=== PATIENT | female | born 2000 | race Caucasian/White ===

== ENCOUNTER → 2021-01-22 | Outpatient (REF) | payer OTHER ==
[2021-01-22 14:14] LABS: FREE T4 1.01 NG/DL (0.78-1.33); THYROID STIMULATING HORMONE 2.05 uIU/ML (0.463-3.98)
[2021-01-22 14:15] LABS: FOLLICLE STIMULATING HORMONE 6.8 mIU/mL; PROGESTERONE 0.56 NG/ML
== END ==
LOC: M PLALAB 12:14
PROVIDERS: ATTEND Obstetrics & Gynecology
DX: N92.6 Irregular menstruation, unspecified (principal)

== ENCOUNTER 2021-05-01 10:11 | Emergency (ER) | payer OTHER, SELFPAY ==
[~2021-05-01] VITALS: Ht 167.6 cm; Wt 74.8 kg
[2021-05-01 10:11] VITALS: BP 128/77
== END 2021-05-01 12:24 | disposition home or self-care (01) ==
LOC: M ED 10:11
DX: U07.1 COVID-19 (principal); R07.0 Pain in throat; R05 Cough; R50.9 Fever, unspecified; F17.200 Nicotine dependence, unspecified, uncomplicated

== ENCOUNTER → 2022-01-30 | Outpatient (REF) | payer OTHER | LOC: M LAB REF 16:08 | PROVIDERS: ATTEND Nurse Practitioner Adult Health | DX: J02.9 Acute pharyngitis, unspecified (principal) ==

== ENCOUNTER → 2022-01-30 | Outpatient (CLI) | payer OTHER ==
[2022-01-30 14:02] LABS: BASO # 0.1 10^3/uL (0.0-0.2); BASO % 0.4 % (0.0-1.0); EOS # 0.3 10^3/uL (0.0-0.5); EOS % 1.7 % (0.0-3.0); HEMATOCRIT 37.1 % (36.0-47.0); HEMOGLOBIN 12.2 g/dl (12.0-15.5); LYMPH % 11.7 % (24.0-44.0); MEAN CORPUSCULAR HGB CONC 32.9 g/dl (32.0-36.5); MEAN CORPUSCULAR VOLUME 88.1 fl (80.0-96.0); MONO # 0.8 10^3/uL (0.0-0.8); MONO % 4.9 % (2.0-8.0); NEUTROPHILS # 13.6 10^3/uL (1.5-8.5); NEUTROPHILS % 80.7 % (36.0-66.0); PLATELET COUNT, AUTOMATED 277 10^3/uL (150-450); RED BLOOD COUNT 4.21 10^6/uL (4.00-5.40); WHITE BLOOD COUNT 16.8 10^3/uL (4.0-10.0)
[2022-01-30 14:49] LABS: HEPATITIS C VIRUS ABY INDEX 0.1 INDEX (<0.8); HIV 1&2 SCREEN CENTAUR NEGATIVE (NEGATIVE)
[2022-01-30 16:16] LABS: GC DNA AMPLIFICATION NEGATIVE (NEGATIVE)
== END ==
LOC: M PLALAB 09:01
PROVIDERS: ATTEND Obstetrics & Gynecology
DX: Z34.82 Encounter for supervision of other normal pregnancy, second trimester (principal)

== ENCOUNTER → 2022-03-02 | Outpatient (CLI) | payer OTHER | LOC: M WHC 08:18 | PROVIDERS: ATTEND Advanced Practice Midwife | DX: Z34.02 Encounter for supervision of normal first pregnancy, second trimester (principal); Z53.9 Procedure and treatment not carried out, unspecified reason ==

== ENCOUNTER → 2022-03-10 | Outpatient (CLI) | payer OTHER | LOC: M WHC 06:53 | PROVIDERS: ATTEND Advanced Practice Midwife | DX: O32.2XX0 Maternal care for transverse and oblique lie, not applicable or unspecified (principal); Z3A.20 20 weeks gestation of pregnancy ==

== ENCOUNTER → 2022-04-13 | Outpatient (REF) | payer OTHER | LOC: M PLALAB 07:55 | PROVIDERS: ATTEND Advanced Practice Midwife | DX: Z34.02 Encounter for supervision of normal first pregnancy, second trimester (principal); Z53.9 Procedure and treatment not carried out, unspecified reason ==

== ENCOUNTER → 2022-04-22 | Outpatient (CLI) | payer OTHER ==
[2022-04-22 14:10] LABS: HEMATOCRIT 35.3 % (36.0-47.0); HEMOGLOBIN 11.2 g/dl (12.0-15.5); MEAN CORPUSCULAR HEMOGLOBIN 28.4 pg (27.0-33.0); MEAN CORPUSCULAR HGB CONC 31.7 g/dl (32.0-36.5); MEAN CORPUSCULAR VOLUME 89.4 fl (80.0-96.0); PLATELET COUNT, AUTOMATED 289 10^3/uL (150-450); RED BLOOD COUNT 3.95 10^6/uL (4.00-5.40); WHITE BLOOD COUNT 16.2 10^3/uL (4.0-10.0)
[2022-04-22 16:13] LABS: GC DNA AMPLIFICATION NEGATIVE (NEGATIVE)
== END ==
LOC: M PLALAB 09:38
PROVIDERS: ATTEND Obstetrics & Gynecology
DX: Z34.02 Encounter for supervision of normal first pregnancy, second trimester (principal)
CPT/HCPCS: 36415; 82950; 85027; 86850; 86900; 86901; 87810; 87850; J2790

== ENCOUNTER → 2022-06-29 | Outpatient (REF) | payer OTHER | LOC: M SFHCWAGY 13:35 | PROVIDERS: ATTEND Advanced Practice Midwife | DX: Z34.03 Encounter for supervision of normal first pregnancy, third trimester (principal) | CPT/HCPCS: 87081; G0463 ==

== ENCOUNTER 2022-07-26 00:15 | Outpatient (CLI) | payer OTHER ==
[~2022-07-26] VITALS: Ht 170.2 cm; Wt 93.1 kg
[2022-07-26 00:56] VITALS: BP 136/83
[2022-07-27] MEDS ORDERED: PRENTAB9 PO ×2 (00:06)
[2022-07-27] MEDS ORDERED: CVS500TA35 PO (00:06)
== END 2022-07-26 02:34 | disposition home or self-care (01) ==
LOC: M LDO 00:15
PROVIDERS: ATTEND Obstetrics & Gynecology
DX: O47.1 False labor at or after 37 completed weeks of gestation (principal); Z3A.39 39 weeks gestation of pregnancy
CPT/HCPCS: 59025; G0463

== ENCOUNTER 2022-07-26 22:23 | Inpatient (IN) | payer OTHER ==
[~2022-07-26] VITALS: Ht 170.2 cm; Wt 92.0 kg
[2022-07-26 22:38] VITALS: BP 138/93
[2022-07-26] MEDS ORDERED: METHYLERGONOVINE MALEATE 0.2 MG/ML VIAL (J2210) IM PRN (23:10)
[2022-07-26] MEDS ORDERED: OXYTOCIN DRIP 30 UNITS in IV 1 EA IV PRN ×4 (23:10)
[2022-07-26] MEDS ORDERED: CARBOPROST TROMETHAMINE 250 MCG/ML AMP IM PRN (23:10)
[2022-07-26] MEDS ORDERED: TRANEXAMIC ACID INJection 1,000 MG in NS 100 ML IV PRN (23:10)
[2022-07-26 23:24] VITALS: BP 136/81
[2022-07-26 23:37] LABS: HEMATOCRIT 33.1 % (36.0-47.0); HEMOGLOBIN 10.2 g/dl (12.0-15.5); MEAN CORPUSCULAR HEMOGLOBIN 24.8 pg (27.0-33.0); MEAN CORPUSCULAR HGB CONC 30.8 g/dl (32.0-36.5); MEAN CORPUSCULAR VOLUME 80.5 fl (80.0-96.0); PLATELET COUNT, AUTOMATED 296 10^3/uL (150-450); RED BLOOD COUNT 4.11 10^6/uL (4.00-5.40); WHITE BLOOD COUNT 15.4 10^3/uL (4.0-10.0)
[2022-07-27] VITALS (30 sets, daily range): BP systolic 111–155; BP diastolic 57–110
[2022-07-27] MEDS ORDERED: CVS500TA35 PO (00:06)
[2022-07-27] MEDS ORDERED: PRENTAB9 PO ×2 (00:06)
[2022-07-27] MEDS ORDERED: NALOXONE INJ 0.4MG/1ML VIAL (J2310 PER 1MG) IV PRN (03:30)
[2022-07-27] MEDS ORDERED: diphenhydrAMINE 50MG/ML VIAL IV PRN (03:30)
[2022-07-27] MEDS ORDERED: LR 500 ML IV PRN (03:30)
[2022-07-27] MEDS ORDERED: EPIDURAL/PCA KEYS XX PRN (03:30)
[2022-07-27] MEDS ORDERED: ONDANSETRON 4MG 2ML VIAL IV PRN (03:30)
[2022-07-27] MEDS ORDERED: FENTANYL/ROPIVACAINE/NACL BAG 100 ML EPIDURAL SCH (03:30)
[2022-07-27] MEDS ORDERED: ePHEDrine SULFATE 25 MG/5 ML(5MG/ML) SYRINGE IVP PRN (03:30)
[2022-07-27] MEDS: LACTATED RINGER'S 1000 ML IV PRN ×2 (03:32→05:31)
[2022-07-27 05:00] LABS: ALBUMIN 2.8 GM/DL (3.2-5.2); ALT/SGPT 16 U/L (12-78); BILIRUBIN,TOTAL 0.3 MG/DL (0.2-1.0); BLOOD UREA NITROGEN 7 MG/DL (7-18); CARBON DIOXIDE LEVEL 21 MEQ/L (21-32); CHLORIDE LEVEL 108 MEQ/L (98-107); CREATININE FOR GFR 0.66 MG/DL (0.55-1.30); GLUCOSE, FASTING 73 MG/DL (70-100); POTASSIUM SERUM 4.1 MEQ/L (3.5-5.1); SODIUM LEVEL 138 MEQ/L (136-145); TOTAL PROTEIN 6.5 GM/DL (6.4-8.2)
[2022-07-27] MEDS ORDERED: OXYTOCIN DRIP 30 UNITS in IV 1 EA IV SCH (05:30)
[2022-07-27] MEDS: LR 1,000 ML IV SCH ×2 (05:31→08:57)
[2022-07-27] MEDS ORDERED: ANUSOL HC CREAM 30GM TOP PRN (10:45)
[2022-07-27] MEDS ORDERED: DIBUCAINE 1% OINTMENT 30GM TOP PRN (10:45)
[2022-07-27] MEDS ORDERED: ACETAMINOPHEN TAB 650MG DOSE (2X325MG) PO PRN (10:45)
[2022-07-27] MEDS ORDERED: RHOGAM 300 MCG (1500 IU) INJ (J2790) IM SCH (10:45)
[2022-07-27] MEDS ORDERED: ACETAMINOPHEN 500 MG TAB PO PRN (10:45)
[2022-07-27] MEDS ORDERED: MOM 30ML SUSPENSION UDC PO PRN (10:45)
[2022-07-27] MEDS ORDERED: IBUPROFEN 600MG TAB PO PRN (10:45)
[2022-07-27] MEDS ORDERED: IBUPROFEN 800 MG TAB PO PRN (10:45)
[2022-07-27] MEDS: DOCUSATE SODIUM 100MG CAPSULE PO PRN (21:03)
[2022-07-28] MEDS: PRENATAL VITAMINS CHEWABLE TABLET PO SCH (14:43)
[2022-07-28 18:00] VITALS: BP 155/88
[2022-07-28] MEDS: DOCUSATE SODIUM 100MG CAPSULE PO PRN (20:51)
[2022-07-29 06:00] VITALS: BP 128/53
[2022-07-29] MEDS ORDERED: MEASLES,MUMPS,RUBELLA VACCINE INJ (MMR-II) (90707) SC.IMMUN ONE (09:00)
[2022-07-29] MEDS: PRENATAL VITAMINS CHEWABLE TABLET PO SCH (09:10)
[2022-07-29] MEDS ORDERED: IBUP80TA PO (10:41)
[2022-07-29] MEDS ORDERED: ACET-683 PO (10:41)
== END 2022-07-29 12:13 | disposition home or self-care (01) | DRG 807 ==
LOC: M LDO 22:23 → M LDI 23:03 → M OBS 07-27 12:18
PROVIDERS: ADMIT Obstetrics & Gynecology; ATTEND Obstetrics & Gynecology
PROC: 10E0XZZ Delivery of Products of Conception, External Approach (ICD-10-PCS; principal; 2022-07-27)
PROC: 0HQ9XZZ Repair Perineum Skin, External Approach (ICD-10-PCS; 2022-07-27)
DX: O77.0 Labor and delivery complicated by meconium in amniotic fluid (principal); Z37.0 Single live birth; Z3A.39 39 weeks gestation of pregnancy; O43.193 Other malformation of placenta, third trimester; O32.6XX0 Maternal care for compound presentation, not applicable or unspecified; O70.0 First degree perineal laceration during delivery

== ENCOUNTER → 2024-03-01 | Outpatient (CLI) | payer OTHER ==
[~2024-03-01] MED LIST: ACET-683 PO; CVS500TA35 PO; IBUP80TA PO; PRENTAB9 PO
[2024-03-01 18:23] LABS: HEMATOCRIT 37.1 % (36.0-47.0); HEMOGLOBIN 12.3 g/dl (12.0-15.5); MEAN CORPUSCULAR HEMOGLOBIN 28.4 pg (27.0-33.0); MEAN CORPUSCULAR HGB CONC 33.2 g/dl (32.0-36.5); MEAN CORPUSCULAR VOLUME 85.7 fl (80.0-96.0); PLATELET COUNT, AUTOMATED 336 10^3/uL (150-450); RED BLOOD COUNT 4.33 10^6/uL (4.00-5.40); WHITE BLOOD COUNT 14.3 10^3/uL (4.0-10.0)
[2024-03-01 19:22] LABS: HIV 1&2 SCREEN NEGATIVE (NEGATIVE)
[2024-03-01 20:29] LABS: HEPATITIS C VIRUS ABY INDEX < 0.02 INDEX (<0.8)
[2024-03-01 21:16] LABS: GC DNA AMPLIFICATION NEGATIVE (NEGATIVE)
== END ==
LOC: M PLALAB 15:11
PROVIDERS: ATTEND Advanced Practice Midwife
DX: Z34.81 Encounter for supervision of other normal pregnancy, first trimester (principal)

== ENCOUNTER → 2024-03-30 | Outpatient (CLI) | payer OTHER | LOC: M PLALAB 15:00 | PROVIDERS: ATTEND Advanced Practice Midwife | DX: Z34.80 Encounter for supervision of other normal pregnancy, unspecified trimester (principal) ==

== ENCOUNTER → 2024-05-19 | Outpatient (CLI) | payer OTHER | LOC: M WHC 07:23 | PROVIDERS: ATTEND Obstetrics & Gynecology | DX: O32.1XX0 Maternal care for breech presentation, not applicable or unspecified (principal); Z3A.21 21 weeks gestation of pregnancy ==

== ENCOUNTER → 2024-06-14 | Outpatient (CLI) | payer OTHER | LOC: M WHC 08:11 | PROVIDERS: ATTEND Nurse Practitioner Women's Health | DX: Z36.2 Encounter for other antenatal screening follow-up (principal); Z3A.24 24 weeks gestation of pregnancy ==

== ENCOUNTER → 2024-06-14 | Outpatient (CLI) | payer OTHER ==
[2024-06-14 14:30] LABS: HEMATOCRIT 36.9 % (36.0-47.0); HEMOGLOBIN 12.1 g/dl (12.0-15.5); MEAN CORPUSCULAR HEMOGLOBIN 28.6 pg (27.0-33.0); MEAN CORPUSCULAR HGB CONC 32.8 g/dl (32.0-36.5); MEAN CORPUSCULAR VOLUME 87.2 fl (80.0-96.0); PLATELET COUNT, AUTOMATED 308 10^3/uL (150-450); RED BLOOD COUNT 4.23 10^6/uL (4.00-5.40); WHITE BLOOD COUNT 17.4 10^3/uL (4.0-10.0)
[2024-06-14 14:33] LABS: GLUCOSE CHALLENGE TEST 1 HOUR 82 MG/DL (LESS THAN 140)
[2024-06-14 15:09] LABS: HIV 1&2 SCREEN NEGATIVE (NEGATIVE)
[2024-06-14 15:17] LABS: HEPATITIS C VIRUS ABY INDEX < 0.02 INDEX (<0.8)
[2024-06-14 16:00] LABS: GC DNA AMPLIFICATION NEGATIVE (NEGATIVE)
== END ==
LOC: M PLALAB 09:32
PROVIDERS: ATTEND Nurse Practitioner Women's Health
DX: Z34.82 Encounter for supervision of other normal pregnancy, second trimester (principal); Z3A.24 24 weeks gestation of pregnancy

== ENCOUNTER → 2024-07-20 | Outpatient (CLI) | payer OTHER | LOC: M RAD 16:48 | PROVIDERS: ATTEND Advanced Practice Midwife | DX: Z34.83 Encounter for supervision of other normal pregnancy, third trimester (principal); Z36.2 Encounter for other antenatal screening follow-up; Z3A.00 Weeks of gestation of pregnancy not specified ==

== ENCOUNTER → 2024-09-01 | Outpatient (REF) | payer OTHER | LOC: M PLALAB 06:56 | PROVIDERS: ATTEND Obstetrics & Gynecology | DX: Z36.85 Encounter for antenatal screening for Streptococcus B (principal); Z3A.36 36 weeks gestation of pregnancy ==

== ENCOUNTER 2024-10-03 11:03 | Inpatient (IN) | payer OTHER ==
[~2024-10-03] VITALS: Ht 167.6 cm; Wt 90.0 kg
[2024-10-03] VITALS (10 sets, daily range): BP systolic 132–167; BP diastolic 72–89
[2024-10-03] MEDS ORDERED: HOME MED LIST COMPLETE! XX SCH (11:10)
[2024-10-03] MEDS ORDERED: TUMS500C PO (11:10)
[2024-10-03] MEDS: LACTATED RINGER'S 1000 ML IV STA (11:52)
[2024-10-03] MEDS ORDERED: METHYLERGONOVINE MALEATE 0.2MG/ML 1ML VIAL IM PRN (11:55)
[2024-10-03] MEDS ORDERED: TRANEXAMIC ACID INJection 1,000 MG in NS 100 ML IV PRN (11:55)
[2024-10-03] MEDS ORDERED: OXYTOCIN DRIP 30 UNITS in IV 1 EA IV PRN (11:55)
[2024-10-03] MEDS ORDERED: CARBOPROST TROMETHAMINE 250 MCG/ML AMP IM PRN (11:55)
[2024-10-03] MEDS ORDERED: LR 1,000 ML IV SCH (11:55)
[2024-10-03] MEDS: miSOPROStol 50MCG 1/2 TABLET PO SCH (12:05)
[2024-10-03 13:00] LABS: HEMATOCRIT 34.2 % (36.0-47.0); HEMOGLOBIN 10.9 g/dl (12.0-15.5); MEAN CORPUSCULAR HEMOGLOBIN 25.2 pg (27.0-33.0); MEAN CORPUSCULAR HGB CONC 31.9 g/dl (32.0-36.5); PLATELET COUNT, AUTOMATED 301 10^3/uL (150-450); RED BLOOD COUNT 4.33 10^6/uL (4.00-5.40); WHITE BLOOD COUNT 17.2 10^3/uL (4.0-10.0)
[2024-10-04] VITALS (13 sets, daily range): BP systolic 111–151; BP diastolic 60–88; O2SAT 97–99
[2024-10-04] MEDS: LR 1,000 ML IV SCH (00:32)
[2024-10-04] MEDS: OXYTOCIN DRIP 30 UNITS in IV 1 EA IV SCH (00:32)
[2024-10-04] MEDS: ONDANSETRON 4MG 2ML VIAL IV PRN (02:25)
[2024-10-04] MEDS: PROMETHAZINE 25MG/ML 1ML VIAL IV PRN (03:33)
[2024-10-04] MEDS: BUTORPHANOL 2 MG/ML 1ML VIAL IV PRN (03:33)
[2024-10-04] MEDS ORDERED: FENTANYL/ROPIVACAINE/NACL BAG 100 ML EPIDURAL SCH (06:05)
[2024-10-04] MEDS ORDERED: ONDANSETRON 4MG 2ML VIAL IV PRN ×2 (06:05→06:45)
[2024-10-04] MEDS ORDERED: diphenhydrAMINE 50MG/ML VIAL IV PRN (06:05)
[2024-10-04] MEDS ORDERED: LR 500 ML IV PRN (06:05)
[2024-10-04] MEDS ORDERED: EPIDURAL/PCA KEYS XX PRN (06:05)
[2024-10-04] MEDS ORDERED: NALOXONE INJ 0.4MG/1ML VIAL IV PRN (06:05)
[2024-10-04] MEDS ORDERED: ePHEDrine SULFATE 25 MG/5 ML(5MG/ML) SYRINGE IVP PRN (06:05)
[2024-10-04] MEDS: LIDOCAINE 1% MDV 20ML VIAL INFIL PRN (06:36)
[2024-10-04] MEDS ORDERED: OXYTOCIN DRIP 30 UNITS in IV 1 EA IV SCH (06:45)
[2024-10-04] MEDS ORDERED: ACETAMINOPHEN 325 MG TAB PO PRN (06:45)
[2024-10-04] MEDS ORDERED: DOCUSATE SODIUM 100MG CAPSULE PO PRN (06:45)
[2024-10-04] MEDS ORDERED: DIBUCAINE 1% OINTMENT 30GM TOP PRN (06:45)
[2024-10-04] MEDS ORDERED: IBUPROFEN 600MG TAB PO PRN (06:45)
[2024-10-04] MEDS ORDERED: CALCIUM CARBONATE 500 MG CHEW U/D PO PRN (06:45)
[2024-10-04 07:37] LABS: HEPATITIS C VIRUS ABY INDEX < 0.02 INDEX (<0.8)
[2024-10-04] MEDS: IBUPROFEN 800 MG TAB PO PRN (07:51)
[2024-10-04] MEDS: PRENATAL VITAMINS CHEWABLE TABLET PO SCH (09:56)
[2024-10-04] MEDS: ANUSOL HC CREAM 30GM TOP PRN (10:06)
[2024-10-04] MEDS: ACETAMINOPHEN 500 MG TAB PO PRN (23:39)
[2024-10-05 06:04] VITALS: BP 125/69; O2SAT 99
[2024-10-05] MEDS ORDERED: IBUP80TA PO (10:30)
[2024-10-05] MEDS: RHOGAM 300MCG (1500IU) INJ IM SCH (11:56)
[2024-10-06] MEDS ORDERED: MEASLES,MUMPS,RUBELLA VACCINE INJ (MMR-II) SC.IMMUN ONE (09:00)
== END 2024-10-05 16:00 | disposition home or self-care (01) | DRG 807 ==
LOC: M LDI 11:03 → M OBS 10-04 09:15 → M PED 10-04 10:15 → M OBS 10-04 10:21
PROVIDERS: ADMIT Obstetrics & Gynecology; ATTEND Obstetrics & Gynecology
PROC: 3E0P7GC Introduction of Other Therapeutic Substance into Female Reproductive, Via Natural or Artificial Opening (ICD-10-PCS; 2024-10-03)
PROC: 10E0XZZ Delivery of Products of Conception, External Approach (ICD-10-PCS; principal; 2024-10-04)
PROC: 0KQM0ZZ Repair Perineum Muscle, Open Approach (ICD-10-PCS; 2024-10-04)
DX: O36.8330 Maternal care for abnormalities of the fetal heart rate or rhythm, third trimester, not applicable or unspecified (principal); Z37.0 Single live birth; O70.1 Second degree perineal laceration during delivery; Z3A.40 40 weeks gestation of pregnancy